=== PATIENT | male | born 1950 | race Caucasian/White ===

== ENCOUNTER → 2016-10-31 | Outpatient (CLI) | payer MEDICARE ==
--- NOTE | 2016-10-31 08:06 | US ---
EXAMINATION TYPE: US duplex aorta DATE OF EXAM: 10/31/2016 COMPARISON: NONE CLINICAL HISTORY: Screening Aortic Aneurysm Z13.9. Pt has no complaints at this time, states screenin g for AAA EXAM MEASUREMENTS: Abdominal Aorta: Proximal: 2.9 x 3.0 cm Mid: 2.3 x 2.4 cm Distal: 1.9 x 2.1 cm Bifurcation: CHHAYA: 1.3 x 1.3 cm HARJINDER: 1.3 x 1.3 cm No evidence of AAA, proximal portion upper limits of normal IMPRESSION: 1. There is ectasia of the aorta with atherosclerotic changes and borderline aneurysm measuring 3 cm in maximal dimension along the proximal abdominal aorta.
== END | disposition home or self-care (01) ==
LOC: RADUSWWP 07:36
PROVIDERS: ATTEND Family Medicine
DX: Z13.6 Encounter for screening for cardiovascular disorders (principal); I77.811 Abdominal aortic ectasia
CPT/HCPCS: 93979

== ENCOUNTER → 2017-12-28 | Outpatient (CLI) | payer MEDICARE ==
--- NOTE | 2017-12-28 10:09 | US ---
EXAMINATION TYPE: US duplex aorta DATE OF EXAM: 12/28/2017 COMPARISON: 10/31/2016 CLINICAL HISTORY: I77.819 Aortic ectasia, unspecified site. EXAM MEASUREMENTS: Abdominal Aorta: Proximal: partially obscured, lower proximal segment 2.1 x 1.8 cm Mid: 1.6 x 1.7 cm Distal: 1.4 x 1.7 cm Bifurcation: 1.1 cm each common iliac artery. IMPRESSION: 1. Ectatic aorta. No aneurysmal dilatation.
== END | disposition home or self-care (01) ==
LOC: RADUSWWP 09:33
PROVIDERS: ATTEND Family Medicine
DX: I77.819 Aortic ectasia, unspecified site (principal)
CPT/HCPCS: 93979

== ENCOUNTER → 2018-10-01 | Outpatient (CLI) | payer MEDICARE ==
--- NOTE | 2018-10-02 10:11 | US ---
EXAMINATION TYPE: US scrotum with doppler. Grayscale and color Doppler Duplex imaging performed of alicia burgos scrotum. DATE OF EXAM: 10/01/2018 COMPARISON: NONE CLINICAL HISTORY: N50.89 Testicular Mass. EXAM MEASUREMENTS: TESTICLES: Right Testicle: 4.9 x 1.7 x cm Left Testicle: 4.5 x 1.9 x 2.8 cm EPIDIDYMIS HEAD: Right Epididymis: 0.9 cm Left Epididymis: 0.6 cm Doppler performed to assess for testicular vascularity; good bilateral color flow and waveforms are s een. There is no evidence of testicular torsion. Presence of hydroceles: no Presence of varicoceles: prominent on left At patients palpable is hypoechoic structure measuring 0.7 x 0.4 x 0.8cm this appears connected to th e vasculature and could represent a small clotted vein. IMPRESSION: Left-sided varicoceles are seen. Additionally within the left-sided varicoceles at the si te of the palpable abnormality there appears to be a dilated vein with internal echogenicity. Primary consideration is for thrombosis of one of the varicoceles.
== END | disposition home or self-care (01) ==
LOC: RADUSWWP 16:36
PROVIDERS: ATTEND Family Medicine
DX: I86.1 Scrotal varices (principal)
CPT/HCPCS: 76870; 93975

== ENCOUNTER → 2018-12-18 | Outpatient (CLI) | payer MEDICARE ==
--- NOTE | 2018-12-18 11:47 | XR ---
EXAMINATION TYPE: XR Hip Bilateral and AP pelvis DATE OF EXAM: 12/18/2018 COMPARISON: NONE HISTORY: Back pain and hip pain with no known injury TECHNIQUE: A single AP view of the pelvis is obtained. Two views of the bilateral hips or obtained. FINDINGS: There is no acute fracture/dislocation evident in the pelvis. The hip and sacroiliac join ts appear symmetric and aligned however there is acetabular roof sclerosis and small marginal osteoph ytes of the bilateral femoral acetabular joints. Small cam deformity seen on the left at the lateral femoral head neck junction. Enthesophytes are noted of the iliac crests. The overlying soft tissue ap pears unremarkable. Two views of both hip show no acute fracture or dislocation. No focal lytic or sclerotic lesion seen in the proximal either femur. The overlying soft tissue is unremarkable. IMPRESSION: 1. No acute fracture or dislocation in the pelvis or either hip. 2. Moderate bilateral femoral acetabular arthropathy. 3. Small cam deformity in the left which can predispose this patient to femoral acetabular impingemen t syndrome.
--- NOTE | 2018-12-18 11:52 | XR ---
EXAMINATION TYPE: XR lumbar spine 2 or 3V DATE OF EXAM: 12/18/2018 CLINICAL HISTORY: Chronic low back pain TECHNIQUE: Frontal and lateral images of the lumbar spine are obtained. COMPARISON: 07/06/2015 FINDINGS: There are 5 lumbar type vertebral bodies identified. The lumbar spine shows satisfactory alignment without evidence of acute fracture or dislocation. Vertebral body heights and disk space he ights are within normal limits. Very mild vertebral body height loss of the L1 vertebral body is unch anged from the prior of 2016. No new compression deformity is seen. Grade 1 anterolisthesis of L4 on L5 is also unchanged from the prior of 2016. No interval worsening is seen. Hypertrophic facet change is noted throughout as well as small anterior osteophytes and multilevel end plate sclerosis. The ov erlying soft tissue appears unremarkable. IMPRESSION: 1. No acute fracture or malalignment is seen in the lumbar spine. 2. Redemonstration of grade 1 anterolisthesis of L4 on L5 likely on the basis of hypertrophic facet c hange and moderate multilevel degenerative disc disease of the lumbar spine. 3. Minimal vertebral body height loss of L1 is chronic and unchanged from 2016.
== END | disposition home or self-care (01) ==
LOC: RADXRMAIN 10:27
PROVIDERS: ATTEND Family Medicine
DX: M43.16 Spondylolisthesis, lumbar region (principal); M12.852 Other specific arthropathies, not elsewhere classified, left hip; M12.851 Other specific arthropathies, not elsewhere classified, right hip
CPT/HCPCS: 72100; 73521

== ENCOUNTER → 2021-07-28 | Outpatient (CLI) | payer MEDICARE ==
--- NOTE | 2021-07-28 19:26 | XR ---
EXAMINATION TYPE: XR lumbar spine 2 or 3V DATE OF EXAM: 07/28/2021 COMPARISON: 12/18/2018 HISTORY: Sciatica, chronic pain TECHNIQUE: Three-view lumbar spine FINDINGS: There is a grade 1 spondylolisthesis of L4 anteriorly on L5. This appears stable from ilia rison. There is mild disc space narrowing diffusely through the L4-5 level. Mild posterior disc space narrow ing is present L1-2 through L3-4. Vertebral body heights are preserved. IMPRESSION: 1. 1. Stable spondylolisthesis of L4 anteriorly on L5. 2. Mild degenerative disc changes L1-2 through L4-5 discussed above.
== END | disposition home or self-care (01) ==
LOC: RADXRMAIN 15:20
PROVIDERS: ATTEND Family Medicine
DX: M43.16 Spondylolisthesis, lumbar region (principal); M47.816 Spondylosis without myelopathy or radiculopathy, lumbar region
CPT/HCPCS: 72100

== ENCOUNTER → 2021-09-21 | Outpatient (CLI) | payer MEDICARE ==
--- NOTE | 2021-09-21 16:43 | US ---
EXAMINATION TYPE: US duplex aorta DATE OF EXAM: 09/21/2021 COMPARISON: 12/28/2017 CLINICAL HISTORY: 71-year-old male I77.811 ABD AORTIC ECTASIA. EXAM MEASUREMENTS: Abdominal Aorta: Proximal: 2.0 x 2.1cm Mid: 2.0 x 2.2cm Distal: 1.6 x 2.0cm Right Iliac: 1.2 x 1.4cm Left Iliac: 1.2 x 1.5cm [employer] Technician notes: No AAA seen at this time IMPRESSION: Borderline ectatic left common iliac artery at 1.5 cm. Otherwise, no AAA or significant abdominal aor tic ectasia seen by ultrasound.
== END | disposition home or self-care (01) ==
LOC: RADUSWWP 10:13
PROVIDERS: ATTEND Family Medicine
DX: I77.811 Abdominal aortic ectasia (principal)
CPT/HCPCS: 93979

== ENCOUNTER 2022-03-18 09:41 | Day surgery (SDC) | payer MEDICARE ==
[2022-03-16 15:45] VITALS: BMI 23.6
[~2022-03-18 09:41] MED LIST: LACTATED RINGERS 1,000 ML IV SCH; LIDOCAINE 1% (10MG/ML) FOR IV START INTRADERMA PRN
[2022-03-18 10:23] LABS: Glucose,Whole Blood 111 mg/dL (70-110)
[2022-03-18 10:25] VITALS: RESP 20; TEMP 98
--- NOTE | 2022-03-18 10:53 | P.PCN ---
Date of Procedure: 03/18/22 Procedure(s) Performed: BRIEF HISTORY: Patient is a 72-year-old pleasant male scheduled for an elective colonoscopy as a part of screening for colon cancer. His last colonoscopy was 10 years ago. PROCEDURE PERFORMED: Colonoscopy. PREOPERATIVE DIAGNOSIS: Screening for colon cancer. IV sedation per Anesthesia. PROCEDURE: After informed consent was obtained, the patient, was brought into the endoscopy unit. IV sedation was administered by Anesthesia under continuous monitoring. Digital rectal examination was normal. Initially the Olympus CF-160 flexible video colonoscope was then inserted in the rectum, gradually advanced into the cecum without any difficulty. Careful examination was performed as the scope was gradually being withdrawn. Ileocecal valve and the appendiceal orifice were visualized and appeared normal. Prep was excellent. Mucosa of the cecum, ascending colon, transverse colon, descending colon, sigmoid colon, and rectum appeared normal. Scattered diffuse diverticulosis seen. Retroflexion was performed in the rectum and no lesions were seen. The patient tolerated the pr ocedure well. IMPRESSION: Normal-appearing colon from rectum to cecum with no evidence of colorectal neoplasia . Scattered diffuse diverticulosis. RECOMMENDATIONS: Findings of this examination were discussed with the patient as well as his family. He was advised to have a repeat screening colonoscopy in 10 years..
[2022-03-18 11:13] VITALS: BP 126/80; PULSE 65
== END 2022-03-18 11:38 | disposition home or self-care (01) ==
LOC: ORWHC2ENDO 09:41
PROVIDERS: ATTEND Internal Medicine Gastroenterology
DX: Z12.11 Encounter for screening for malignant neoplasm of colon (principal); K57.30 Diverticulosis of large intestine without perforation or abscess without bleeding